=== PATIENT | male | born 1955 | race Caucasian/White ===

== ENCOUNTER 2019-08-03 08:08 | Outpatient (CLI) | payer OTHER ==
--- NOTE | 2019-08-03 10:10 | Diagnostic Imaging Report ---
PATIENT MR#: [id number] PATIENT PATIENT NAME: SHASTA ROBERSON DATE OF : 1955 REFERRING PHYSICIAN: Dominick Franklin EXAM DATE: 08/03/2019 ACCESSION NUMBER: [id number] EXAM DESCRIPTION: US ABDOMEN LIMITED Ultrasound abdomen limited Note time : 08/03/2019 10:03:28 AM User : Cindy galeas REASON: HEP B HISTORY: NO SYMPTOMS ?SLIGHTLY ENLARGED RT RENAL PELVIS ----- (DICOM Hx) / Findings: Ultrasonographic examination without prior shows the liver to be normal in size, contour and echotext ure. There is no intrahepatic duct dilation. Common bile duct is 1 mm. The gallbladder is normal. No stones or pericho lecystic fluid is present. The visualized pancreas is unremarkable. The right kidney measures 11.2 cm . There is no hydronephrosis. Impression: Normal exam Read by: Dr. Shaun St Transcribed by: Transcribed Date: Electronically signed by: Dr. Shaun St Date signed: 08/03/2019 1:32:57 PM
== END 2019-08-03 08:18 ==
LOC: RAD 08:08
PROVIDERS: ATTEND Family Medicine
DX: B19.10 Unspecified viral hepatitis B without hepatic coma (principal)
CPT/HCPCS: 76705